=== PATIENT | female | born 1965 | race Caucasian/White ===

== ENCOUNTER 2017-07-26 15:36 | Emergency (ER) | payer MEDICARE, MEDICAID ==
[2017-07-26] MEDS ORDERED: Rivaroxaban 10 MG Tab PO ONE (18:01)
--- NOTE | 2017-07-26 18:01 | EDM.PDOC ---
ED HPI GENERAL MEDICAL PROBLEM - General Chief Complaint: Lower Extremity Injury/Pain Stated Complaint: RT ANKLE SWOLLEN AND HURTS Time Seen by Provider: 07/26/17 17:53 Source of Information: Reports: Patient History Limitations: Reports: No Limitations - History of Present Illness INITIAL COMMENTS - FREE TEXT/NARRATIVE: HISTORY AND PHYSICAL: []52-year-old patient presenting from [facility] [place] with pain to her right leg History of Present Illness: []Patient is mentally challenged Cooperative with exam Has type 2 diabetes Was at [facility] walking for a couple hours today and then stated that her leg hurt, caseworkers then noted that her leg was quite swollen to the lower calf and there was a dark area surrounding her leg just above the ankle Review of Systems: As per history of present illness and below otherwise all systems reviewed and negative. Past medical history: As per history of present illness and as reviewed below otherwise noncontributory. Surgical history: As per history of present illness and as reviewed below otherwise noncontributory. Social history: No reported history of drug or alcohol abuse. Family history: As per history of present illness and as reviewed below otherwise noncontributory. Physical exam: Alert woman answering questions appropriately, has difficulty remembering length of time. Patient was in clinic to see a assistant health educator and her ankle did not look like this on 6 days ago. HEENT: Atraumatic, normocehpalic, pupils reactive, negative for conjunctival pallor or scleral icterus, mucous membranes moist, throat clear, neck supple, nontender, trachea midline. Lungs: Clear to auscultation, breath sounds equal bilaterally, chest non tender. Heart: S1S2, regular, negative for clicks, rubs, or JVD. Abdomen: Soft, nondistended, nontender. Negative for masses or hepatossplenmegaly. Negative for costovertebral tenderness. Pelvis: Stable nontender. Genitourinary: Deferred. Rectal: Deferred Extremities: Edema noted to the calf of her right lower leg no heat is radiating , darkened skin surrounding the right lower leg approximately 4 cm above her ankle, areas proximal 6 cm in length circumferential to the ankle, negative for cords or calf pain. Neurovascular unremarkable. Neuro: Awake, alert, oriented. Cranial nerves II through XII unremarkable. Cerebellum unremarkable. Motor and sensory unremarkable throughout. Exam nonfocal. Diagnostics: Doppler [Ultrasound] Therapeutics: [Unna boot/Gelocast Xarelto] Impression: [#1 DVT right lower leg #2 stasis ulcer right lower leg] Plan: [Discharged to home Leave the Unna boot in place until seen this week by your primary care provider Xarelto one was given in the emergency room and prescription to be filled] Hold the diclofenac until seen by her primary care provider May have Tylenol for discomfort Definitive disposition and diagnosis as appropriate pending reevaluation and review of above. Onset: Gradual Duration: Day(s): Location: Reports: Lower Extremity, Right Quality: Reports: Ache Severity: Moderate Improves with: Reports: None Worsens with: Reports: None Right Leg Pain Score (Numeric/FACES): 5 - Related Data Allergies Allergy/AdvReac Type Severity Reaction Status Date / Time No Known Allergies Allergy Verified 07/26/17 16:06 Home Meds: Home Meds Canagliflozin [Invokana] 300 mg PO DAILY 07/26/17 [History] Diclofenac Sodium 100 gm TP DAILY 07/26/17 [History] Diclofenac Sodium [Voltaren] 75 mg PO BIDMEALS 07/26/17 [History] Exenatide Microspheres [Bydureon] 2 mg SQ DAILY 07/26/17 [History] Furosemide 20 mg PO DAILY 07/26/17 [History] Hydrochlorothiazide 25 mg PO DAILY 07/26/17 [History] Insulin Aspart [NovoLOG] 32 unit SQ BID 07/26/17 [History] Insulin Glarg,Human.Rec.Analog [Lantus] 0 unit SUBCUT DAILY 07/26/17 [History] Lisinopril 10 mg PO DAILY 07/26/17 [History] Olopatadine [Pataday 0.2% Ophth Soln] 1 drop OP DAILY 07/26/17 [History] Rivaroxaban [Xarelto] 15 mg PO BID #42 tablet 07/26/17 [Rx] Past Medical History Other Neuro History: develop mentally delayed? Endocrine/Metabolic History: Reports: Diabetes, Type I Social & Family History - Tobacco Use Smoking Status *Q: Never Smoker Second Hand Smoke Exposure: No - Caffeine Use Caffeine Use: Reports: Coffee, Soda - Alcohol Use Days Per Week of Alcohol Use: 0 Number of Drinks Per Day: 0 Total Drinks Per Week: 0 - Recreational Drug Use Recreational Drug Use: No Drug Use in Last 12 Months: No Review of Systems - Review of Systems Review Of Systems: ROS reveals no pertinent complaints other than HPI. ED EXAM, GENERAL - Physical Exam Exam: See Below (See dictation) Course - Vital Signs Last Recorded V/S: Last Vital Signs Temp 36.2 C 07/26/17 16:23 Pulse 104 H 07/26/17 16:23 Resp 18 07/26/17 16:23 BP 136/67 07/26/17 16:23 Pulse Ox 96 07/26/17 16:23 - Orders/Labs/Meds Orders: Active Orders 24 hr Category Date Time Status Venous Doppler Lwr Ext Rt [US] Stat Exams 07/26/17 16:21 Ordered Meds: Medications Discontinued Medications Generic Name Dose Route Start Last Admin Trade Name Freq PRN Reason Stop Dose Admin Rivaroxaban 10 mg 07/26/17 18:01 Xarelto PO 07/26/17 18:02 ONETIME ONE Departure - Departure Time of Disposition: 18:07 Disposition: Home, Self-Care 01 Condition: Good Clinical Impression: DVT (deep venous thrombosis) Qualifiers: DVT location: lower extremity Affected thrombotic vein of extremity: unspecified vein of extremity Chronicity: acute Laterality: right Qualified Code (s): I82.401 - Acute embolism and thrombosis of unspecified deep veins of right lower extremity Venous stasis dermatitis Qualifiers: Laterality: right Qualified Code(s): I87.2 - Venous insufficiency (chronic) ( peripheral) - Discharge Information Prescriptions: Rivaroxaban [Xarelto] 15 mg PO BID #42 tablet Referrals: Deyanira Portillo DO [Primary Care Provider] - Forms: ED Department Discharge Additional Instructions: The following information is given to patients seen in the emergency department who are being discharged to home. This information is to outline your options for follow-up care. We provide all patients seen in our emergency department with a follow-up referral. The need for follow-up, as well as the timing and circumstances, are variable depending upon the specifics of your emergency department visit. If you don't have a primary care physician on staff, we will provide you with a referral. We always advise you to contact your personal physician following an emergency department visit to inform them of the circumstance of the visit and for follow-up with them and/or the need for any referrals to a consulting specialist. The emergency department will also refer you to a specialist when appropriate. This referral assures that you have the opportunity for followup care with a specialist. All of these measure are taken in an effort to provide you with optimal care, which includes your followup. Under all circumstances we always encourage you to contact your private physician who remains a resource for coordinating your care. When calling for followup care, please make the office aware that this follow-up is from your recent emergency room visit. If for any reason you are refused follow-up, please contact the [facility] emergency department at and asked to speak to the emergency department charge nurse. SHe has been started on Xarelto for a blood clot in your right calf This medication is taken twice daily A prescription has been sent to your pharmacy A dressing has been applied to your lower leg for venous stasis dermatitis Follow up with your primary care provider Dr. Calixto see this week for reevaluation Stop your diclofenac while you're taking this medication You may take Tylenol 3 times a day 2 tablets - My Orders Last 24 Hours: My Active Orders 07/26/17 16:21 Venous Doppler Lwr Ext Rt [US] Stat - Assessment/Plan Last 24 Hours: My Active Orders 07/26/17 16:21 Venous Doppler Lwr Ext Rt [US] Stat
[2017-07-26] MEDS ORDERED: Rivaroxaban 15 MG Tab PO STA (18:18)
[2017-07-26 19:00] VITALS: BP 144/66
--- NOTE | 2017-07-28 14:44 | US ---
EXAM DATE: 07/26/17 PATIENT'S AGE: 52 Patient: JUANA MCCORD Facility: [place], [place] Site . Site : [id number] Study: US Extremity Right -07/26/2017 5:39:32 PM Ordering Physician: Doctor Villela Final Report: INDICATION: Right lower extremity swelling TECHNIQUE: Ultrasound venous duplex lower right extremity. Compression venous exam was performed using marin-scale, color Doppler, and spectral Doppler imaging. COMPARISON: None FINDINGS: Sonographic imaging demonstrates the right common femoral, deep femoral, superficial femoral, posterior tibial and greater saphenous veins to be fully compressible with normal color Doppler blood flow. Deep venous thrombosis involving the right popliteal vein. IMPRESSION: Deep venous thrombosis involving the right popliteal vein. Dictated by Darío Aleman MD @ 07/26/2017 6:12:25 PM Dictated by: Darío Aleman MD @ 07/26/2017 18:12:37 ----- ADDENDUM ----- Confirmation of report procedure 07/26/2017 at 6:[address] Betancur: Dictated by Darío Aleman MD @ Jul 26 2017 6:20PM (Electronic Signature) Report Signed by Proxy. JOSIE
== END 2017-07-26 18:55 | disposition home or self-care (01) ==
LOC: MW.ED 15:36
DX: I83.018 Varicose veins of right lower extremity with ulcer other part of lower leg (principal); I83.212 Varicose veins of right lower extremity with both ulcer of calf and inflammation; E10.9 Type 1 diabetes mellitus without complications; Z79.899 Other long term (current) drug therapy
CPT/HCPCS: 93971; 99283; A9270; 99284

== ENCOUNTER 2017-07-29 13:18 | Emergency (ER) | payer MEDICARE, MEDICAID ==
--- NOTE | 2017-07-29 14:14 | EDM.PDOC ---
ED HPI GENERAL MEDICAL PROBLEM - General Chief Complaint: Lower Extremity Injury/Pain Stated Complaint: BLOOD CLOT IN RT LEG Time Seen by Provider: 07/29/17 13:27 Source of Information: Reports: Patient History Limitations: Reports: No Limitations - History of Present Illness INITIAL COMMENTS - FREE TEXT/NARRATIVE: HISTORY AND PHYSICAL: History of present illness: Patient is a 52-year-old female who presents to the emergency room today for a reevaluation of her stasis ulcer and DVT of the right lower extremity. She was seen in our emergency room on 07/26/2017 diagnosed with a DVT and placed on several toe. The patient was supposed to follow-up with her primary care provider but they canceled her appointment. She was unable to get in to either clinic and decided to be evaluated through our emergency department. She reports that she has not removed the Unna boot/Gelocast dressing since it was applied on Tuesday. panel lay up worker that is with the patient states that the home care nurse reports the RLE to appear improved. Patient states that the pain has improved. Denies any shortness of breath or chest pain. She states she's been up ambulating without any difficulty. Offers no systemic complaints. Review of systems: As per history of present illness and below otherwise all systems reviewed and negative. Past medical history: As per history of present illness and as reviewed below otherwise noncontributory. Surgical history: As per history of present illness and as reviewed below otherwise noncontributory. Social history: No reported history of drug or alcohol abuse. Family history: As per history of present illness and as reviewed below otherwise noncontributory. Physical exam: Gen.: Well-developed and well-nourished 52-year-old female. Alert and appropriate for self (mentally challenged). Appears non-toxic and in no acute distress. HEENT: Atraumatic, normocephalic, pupils reactive, negative for conjunctival pallor or scleral icterus, mucous membranes moist, throat clear, neck supple, nontender, trachea midline. Lungs: Clear to auscultation, breath sounds equal bilaterally, chest nontender. Heart: S1S2, regular rate and rhythm without murmur Abdomen: Soft, nondistended, obese, nontender. Negative for masses or hepatosplenomegaly. Negative for costovertebral tenderness. Pelvis: Stable nontender. Genitourinary: Deferred. Rectal: Deferred. Extremities: Atraumatic, negative for cords or calf pain. Neurovascular unremarkable. Skin: Skin is intact, no open sores. Strong pedal pulses. No soft tissue swelling or edema. Midshin to ankle has a dark noni appearance consistant with venous ulcers. No bruising noted to the extremities or trunk/torso. Neuro: Awake, alert, oriented. Cranial nerves II through XII unremarkable. Cerebellum unremarkable. Motor and sensory unremarkable throughout. Exam nonfocal. VSS. The Gelocast was removed. Skin is intact, no open sores. Strong pedal pulses. No soft tissue swelling or edema. Midshin to ankle has a dark noni appearance consistant with venous ulcers. No bruising noted to the extremities or trunk/torso. The dressing will be reapplied by nursing staff. Instructed patient to follow up with her primary care provider next week for reevaluation. Discussed signs and symptoms that would prompt her to come back to the emergency department. Both patient and social work therapist voice understanding and are agreeable to plan of care. Denies any questions at this time. Dressing was completed by nursing staff and wound care nurse/PT staff. Diagnostics: [] Therapeutics: Gelocast Dressing Impression: Wound Recheck Hx of DVT Plan: 1. May use Tylenol as needed for pain. Please avoid any NSAIDs (Aspirin, Ibuprofen, Aleve) at this time. 2. Continue with your Xarelto. 3. Dressing changes as you have been doing, per home care nurse. 4. Follow up with your primary care doctor next week. 5. If you should develop any fever, increased swelling or pain, shortness of breath or chest pain please return to the emergency department. Otherwise return as needed and as discussed. Definitive disposition and diagnosis as appropriate pending reevaluation and review of above. Duration: Day(s): right leg Pain Score (Numeric/FACES): 4 - Related Data Allergies Allergy/AdvReac Type Severity Reaction Status Date / Time No Known Allergies Allergy Verified 07/29/17 13:25 Home Meds: Home Meds Canagliflozin [Invokana] 300 mg PO DAILY 07/29/17 [History] Diclofenac Sodium 1 gm TOP TID 07/29/17 [History] Exenatide Microspheres [Bydureon] 2 mg SQ WEEKLY 07/29/17 [History] Furosemide [Lasix] 20 mg PO DAILY 07/29/17 [History] Hydrochlorothiazide 25 mg PO DAILY 07/29/17 [History] Insulin Aspart [NovoLOG] 32 unit SUBCUT BID 07/29/17 [History] Insulin Glarg,Human.Rec.Analog [Lantus] 42 units SUBCUT BID 07/29/17 [History] Lisinopril 10 mg PO DAILY 07/29/17 [History] Loratadine 10 mg PO DAILY 07/29/17 [History] Olopatadine [Pataday 0.2% Ophth Soln] 1 drop EYEBOTH BID 07/29/17 [History] Rivaroxaban [Xarelto] PO BID 07/29/17 [History] Past Medical History Other Neuro History: develop mentally delayed? Endocrine/Metabolic History: Reports: Diabetes, Type I Social & Family History - Family History Family Medical History: Noncontributory - Tobacco Use Smoking Status *Q: Never Smoker Second Hand Smoke Exposure: No - Caffeine Use Caffeine Use: Reports: Coffee, Soda - Alcohol Use Days Per Week of Alcohol Use: 0 Number of Drinks Per Day: 0 Total Drinks Per Week: 0 - Recreational Drug Use Recreational Drug Use: No Drug Use in Last 12 Months: No Review of Systems - Review of Systems Review Of Systems: ROS reveals no pertinent complaints other than HPI. ED EXAM, GENERAL - Physical Exam Exam: See Below (See dictation) Course - Vital Signs Last Recorded V/S: Last Vital Signs Temp 96.5 F 07/29/17 13:25 Pulse 101 H 07/29/17 13:25 Resp 18 07/29/17 13:25 BP 126/75 07/29/17 13:25 Pulse Ox 93 L 07/29/17 13:25 Departure - Departure Time of Disposition: 14:43 Disposition: Home, Self-Care 01 Clinical Impression: Encounter for wound re-check, History of DVT (deep vein thrombosis) - Discharge Information Referrals: PCP,None [Primary Care Provider] - Forms: ED Department Discharge Additional Instructions: My general discharge The following information is given to patients seen in the emergency department who are being discharged to home. This information is to outline your options for follow-up care. We provide all patients seen in our emergency department with a follow-up referral. The need for follow-up, as well as the timing and circumstances, are variable depending upon the specifics of your emergency department visit. If you don't have a primary care physician on staff, we will provide you with a referral. We always advise you to contact your personal physician following an emergency department visit to inform them of the circumstance of the visit and for follow-up with them and/or the need for any referrals to a consulting specialist. The emergency department will also refer you to a specialist when appropriate. This referral assures that you have the opportunity for follow-up care with a specialist. All of these measure are taken in an effort to provide you with optimal care, which includes your follow-up. Under all circumstances we always encourage you to contact your private physician who remains a resource for coordinating your care. When calling for follow-up care, please make the office aware that this follow-up is from your recent emergency room visit. If for any reason you are refused follow-up, please contact the [facility] Emergency Department at and asked to speak to the emergency department charge nurse. [facility] [address] [place] [id number] 1. May use Tylenol as needed for pain. Please avoid any NSAIDs (Aspirin, Ibuprofen, Aleve) at this time. 2. Continue with your Xarelto until directed by your primary care provider. 3. Dressing changes as you have been doing, per home care nurse. 4. Follow up with your primary care doctor next week. 5. If you should develop any fever, increased swelling or pain, shortness of breath or chest pain please return to the emergency department. Otherwise return as needed and as discussed.
[2017-07-29 15:04] VITALS: BP 120/76
== END 2017-07-29 15:01 | disposition home or self-care (01) ==
LOC: MW.ED 13:18
DX: Z48.812 Encounter for surgical aftercare following surgery on the circulatory system (principal); Z86.718 Personal history of other venous thrombosis and embolism; E10.9 Type 1 diabetes mellitus without complications; Z79.899 Other long term (current) drug therapy
CPT/HCPCS: 99283

== ENCOUNTER 2019-08-13 11:04 | Emergency (ER) | payer MEDICARE, MEDICAID ==
[2019-08-13 11:51] VITALS: BP 152/67; PULSE 92
--- NOTE | 2019-08-13 12:03 | CR ---
Left wrist: 3 views left wrist were obtained. Joint space narrowing is noted between the distal radius and navicular bone. Navicular bone appears sclerotic and slightly deformed likely relating to previous fracture. Small cyst is noted within the lunate bone, which likely is due to degenerative change from impaction by the ulna. No acute abnormality is otherwise seen. Impression: 1. Degenerative change as noted above. 2. 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 Diagnostic code #3 Study was dictated in [place] [employer]
--- NOTE | 2019-08-13 12:34 | EDM.PDOC ---
ED HPI GENERAL MEDICAL PROBLEM - General Chief Complaint: Upper Extremity Injury/Pain Stated Complaint: FELL AND TWISTED LEFT WRIST Time Seen by Provider: 08/13/19 12:05 Source of Information: Reports: Patient, Other ([facility] resident care supervisor) History Limitations: Reports: Other (Poor historian) - History of Present Illness INITIAL COMMENTS - FREE TEXT/NARRATIVE: HISTORY AND PHYSICAL: History of present illness: Patient is a 54-year-old female who presents to the ED today with her light rail signal technician from [facility] for concern of left wrist injury. The light rail signal technician states that they were at lunch when patient had started to fall but caught herself with her left wrist. [employer] states that she did not completely fall and did not hit her head or lose consciousness. Patient states that since then she has been having left wrist pain. Patient and light rail signal technician deny any other symptoms or concerns. Patient denies fever, chills, chest pain, shortness of breath, or cough. Denies headache, neck stiff ness, change in vision, syncope, or near syncope. Denies nausea, vomiting, abdominal pain, diarrhea, constipation, or dysuria. Has not noted any blood in urine or stool. Patient has been eating and drinking appropriately. Review of systems: As per history of present illness and below otherwise all systems reviewed and negative. Past medical history: As per history of present illness and as reviewed below otherwise noncontributory. Surgical history: As per history of present illness and as reviewed below otherwise noncontributory. Social history: See social history for further information Family history: As per history of present illness and as reviewed below otherwise noncontributory. Physical exam: General: Patient is alert, oriented, and in no acute distress. Patient sitting comfortably on exam table. HEENT: Atraumatic, normocephalic, pupils equal and reactive bilaterally, negative for conjunctival pallor or scleral icterus, mucous membranes moist, TMs normal bilaterally, throat clear, neck supple, nontender, trachea midline. No drooling or trismus noted. No meningeal signs. No hot potato voice noted. Lungs: Clear to auscultation, breath sounds equal bilaterally, chest nontender. Heart: S1S2, regular rate and rhythm without overt murmur Abdomen: Soft, nondistended, nontender. Negative for masses or hepatosplenomegaly. Negative for costovertebral tenderness. Pelvis: Stable nontender. Genitourinary: Deferred. Rectal: Deferred. Skin: Intact, warm, dry. No lesions or rashes noted. Extremities: Atraumatic, negative for cords or calf pain. Neurovascular unremarkable. She has full range of motion of the complete left upper extremity without pain or difficulty. Radial pulses grossly intact with capillary refill less than 2 seconds. Neuro: Awake, alert, oriented. Cranial nerves II through XII unremarkable. Cerebellum unremarkable. Motor and sensory unremarkable throughout. Exam nonfocal. Notes: Dr. Ugarte, orthopedics internal medicine nurse practitioner, consulted on patient and states that she is to follow up this week with him in the clinic. Discussed importance for follow-up with an orthopedic provider. Voices understanding and is agreeable to plan of care. Denies any further questions or concerns at this time. Diagnostics: Wrist XR Therapeutics: None ( has wrist splint at home) Prescription: None Impression: Left wrist injury Plan: 1. Rest, ice, elevate the affected extremity. You can apply ice 15 minutes on, 15 minutes off. Use splint you have at home until orthopedic follow up. 2. Tylenol and/or Ibuprofen as directed for pain management or discomfort. 3. Follow up with the Orthopedic provider as discussed. Call the clinic to set up an appointment time. Return to the ED as needed and as discussed. Definitive disposition and diagnosis as appropriate pending reevaluation and review of above. - Related Data Allergies Allergy/AdvReac Type Severity Reaction Status Date / Time No Known Allergies Allergy Verified 07/29/17 13:25 Home Meds: Home Meds Canagliflozin [Invokana] 300 mg PO DAILY 07/29/17 [History] Diclofenac Sodium 1 gm TOP TID 07/29/17 [History] Exenatide Microspheres [Bydureon] 2 mg SQ WEEKLY 07/29/17 [History] Furosemide [Lasix] 20 mg PO DAILY 07/29/17 [History] Insulin Aspart [NovoLOG] 32 unit SUBCUT BID 07/29/17 [History] Insulin Glarg,Human.Rec.Analog [Lantus] 42 units SUBCUT BID 07/29/17 [History] Lisinopril 10 mg PO DAILY 07/29/17 [History] Loratadine 10 mg PO DAILY 07/29/17 [History] Olopatadine [Pataday 0.2% Ophth Soln] 1 drop EYEBOTH BID 07/29/17 [History] Rivaroxaban [Xarelto] PO BID 07/29/17 [History] hydroCHLOROthiazide [Hydrochlorothiazide] 25 mg PO DAILY 07/29/17 [History] Past Medical History HEENT History: Reports: Impaired Vision Cardiovascular History: Reports: Hypertension Other Neuro History: develop mentally delayed? Endocrine/Metabolic History: Reports: Diabetes, Type II Social & Family History - Family History Family Medical History: Noncontributory - Tobacco Use Smoking Status *Q: Never Smoker - Caffeine Use Caffeine Use: Reports: Coffee, Soda - Recreational Drug Use Recreational Drug Use: No Review of Systems - Review of Systems Review Of Systems: Comprehensive ROS is negative, except as noted in HPI. ED EXAM, GENERAL - Physical Exam Exam: See Below (see dictation) Course - Vital Signs Last Recorded V/S: Last Vital Signs Temp 97.4 F 08/13/19 11:47 Pulse 92 08/13/19 11:47 Resp 18 08/13/19 11:47 BP 152/67 H 08/13/19 11:47 Pulse Ox 95 08/13/19 11:47 Departure - Departure Time of Disposition: 12:30 Disposition: Home, Self-Care 01 Clinical Impression: Left wrist injury Qualifiers: Encounter type: initial encounter Qualified Code(s): S69.92XA - Unspecified injury of left wrist, hand and finger(s), initial encounter - Discharge Information Referrals: Deyanira Portillo DO [Primary Care Provider] - Additional Instructions: The following information is given to patients seen in the emergency department who are being discharged to home. This information is to outline your options for follow-up care. We provide all patients seen in our emergency department with a follow-up referral. The need for follow-up, as well as the timing and circumstances, are variable depending upon the specifics of your emergency department visit. If you don't have a primary care physician on staff, we will provide you with a referral. We always advise you to contact your personal physician following an emergency department visit to inform them of the circumstance of the visit and for follow-up with them and/or the need for any referrals to a consulting specialist. The emergency department will also refer you to a specialist when appropriate. This referral assures that you have the opportunity for follow-up care with a specialist. All of these measure are taken in an effort to provide you with optimal care, which includes your follow-up. Under all circumstances we always encourage you to contact your private physician who remains a resource for coordinating your care. When calling for follow-up care, please make the office aware that this follow-up is from your recent emergency room visit. If for any reason you are refused follow-up, please contact the [facility] Emergency Department at and asked to speak to the emergency department charge nurse. [facility] [address] [place] [id number] [address] [facility] Professional Building [address] [place] [address], [address] [place] [address] 1. Rest, ice, elevate the affected extremity. You can apply ice 15 minutes on, 15 minutes off. Use splint you have at home until orthopedic follow up. 2. Tylenol and/or Ibuprofen as directed for pain management or discomfort. 3. Follow up with the Orthopedic provider as discussed. Call the clinic to set up an appointment time. Return to the ED as needed and as discussed. Sepsis Event Note - Evaluation Sepsis Screening Result: No Definite Risk - Focused Exam Vital Signs: Vital Signs Temp Pulse Resp BP Pulse Ox 08/13/19 11:47 97.4 F 92 18 152/67 H 95 Date Exam was Performed: 08/13/19 Time Exam was Performed: 12:29
== END 2019-08-13 13:04 | disposition home or self-care (01) ==
LOC: MW.ED 11:04
DX: S69.92XA Unspecified injury of left wrist, hand and finger(s), initial encounter (principal); E11.9 Type 2 diabetes mellitus without complications; I10 Essential (primary) hypertension; Z79.4 Long term (current) use of insulin; Z79.899 Other long term (current) drug therapy; W19.XXXA Unspecified fall, initial encounter
CPT/HCPCS: 29125; 73110-26-LT; 73110-LT; 99283; 99283-25

== ENCOUNTER 2020-12-23 18:04 | Emergency (ER) | payer MEDICARE, MEDICAID ==
[2020-12-23 18:51] VITALS: BP 145/76; PULSE 89
--- NOTE | 2020-12-23 19:09 | EDM.PDOC ---
ED HPI GENERAL MEDICAL PROBLEM - General Chief Complaint: Lower Extremity Injury/Pain Stated Complaint: PAIN IN LOWER LEG Time Seen by Provider: 12/23/20 18:07 Source of Information: Reports: Patient History Limitations: Reports: No Limitations - History of Present Illness INITIAL COMMENTS - FREE TEXT/NARRATIVE: HISTORY AND PHYSICAL: History of present illness: Patient is a 55-year-old female who presents emergency room today from [facility] with her auditor at bedside with complaint of right lower extremity swelling, edema that started yesterday. Per the auditor, patient started complaining of her lower extremity yesterday and they noticed the redness this morning. Underground Supervisor states that she has a history of prior DVT in the other lower extremity a few years ago. Patient states that she started having some pain and denies any injury or trauma. Underground Supervisor also denies any injury or trauma. Patient has been able to walk without difficulty. Denies any other symptoms or concerns. Patient denies fever, chills, chest pain, shortness of breath, or cough. Denies headache, neck stiff ness, change in vision, syncope, or near syncope. Denies nausea, vomiting, abdominal pain, diarrhea, constipation, or dysuria. Has not noted any blood in urine or stool. Patient has been eating and drinking appropriately. Review of systems: As per history of present illness and below otherwise all systems reviewed and negative. Past medical history: As per history of present illness and as reviewed below otherwise noncontributory. Surgical history: As per history of present illness and as reviewed below otherwise noncontributory. Social history: See social history for further information Family history: As per history of present illness and as reviewed below otherwise noncontributory. Physical exam: General: Patient is alert, oriented, and in no acute distress. Patient sitting comfortably on exam table. Vitals stable and reviewed by me. HEENT: Atraumatic, normocephalic, pupils equal and reactive bilaterally, negative for conjunctival pallor or scleral icterus, mucous membranes moist, TMs normal bilaterally, throat clear, neck supple, nontender, trachea midline. No drooling or trismus noted. No meningeal signs. No hot potato voice noted. Lungs: Clear to auscultation, breath sounds equal bilaterally, chest nontender. Heart: S1S2, regular rate and rhythm without overt murmur Abdomen: Soft, nondistended, nontender. Negative for masses or hepatosplenomegaly. Negative for costovertebral tenderness. Pelvis: Stable nontender. Genitourinary: Deferred. Rectal: Deferred. Skin: Intact, warm, dry. No lesions or rashes noted. Extremities: The left lower extremity from the mid tib/fib area to the ankle is edematous and erythematous and increased warmth to the touch. Pain to palpation of this area. Patient has full range of motion of the complete left lower extremity without pain or difficulty. Intact sensation to light and deep touch of the complete left lower extremity. All compartments are soft of the left lower extremity. Dorsalis pedis and posterior tibial pulses are intact via Doppler. Otherwise, atraumatic, negative for cords or calf pain. Neurovascular unremarkable. Neuro: Awake, alert, oriented. Cranial nerves II through XII unremarkable. Cerebellum unremarkable. Motor and sensory unremarkable throughout. Exam nonfoc al. Notes: Signs and symptoms that would prompt return to the ED thoroughly discussed with patient and caregiver. Discussed importance for follow-up with a primary care provider. Area of cellulitis was outlined with a marker. Voices understanding and is agreeable to plan of care. Denies any further questions or concerns at this time. Diagnostics: Lower extremity venous ultrasound Therapeutics: None Prescription: Keflex Impression: Cellulitis, left lower extremity Plan: 1. Take medication as prescribed. You can alternate ibuprofen and Tylenol as directed for pain and discomfort. 2. Follow-up with primary care provider as discussed. Return to the ED as needed and as discussed. 3. Continue to monitor for signs of improving versus worsening infection as discussed. Definitive disposition and diagnosis as appropriate pending reevaluation and review of above. left leg Pain Score (Numeric/FACES): 6 - Related Data Allergies Allergy/AdvReac Type Severity Reaction Status Date / Time No Known Allergies Allergy Verified 12/23/20 18:51 Home Meds: Home Meds Canagliflozin [Invokana] 300 mg PO DAILY 07/29/17 [History] Diclofenac Sodium 1 gm TOP TID 07/29/17 [History] Exenatide Microspheres [Bydureon] 2 mg SQ WEEKLY 07/29/17 [History] Furosemide [Lasix] 20 mg PO DAILY 07/29/17 [History] Insulin Aspart [NovoLOG] 32 unit SUBCUT BID 07/29/17 [History] Insulin Glarg,Human.Rec.Analog [Lantus] 42 units SUBCUT BID 07/29/17 [History] Lisinopril 10 mg PO DAILY 07/29/17 [History] Loratadine 10 mg PO DAILY 07/29/17 [History] Olopatadine [Pataday 0.2% Ophth Soln] 1 drop EYEBOTH BID 07/29/17 [History] Rivaroxaban [Xarelto] PO BID 07/29/17 [History] hydroCHLOROthiazide [Hydrochlorothiazide] 25 mg PO DAILY 07/29/17 [History] cephALEXin [Keflex] 500 mg PO Q8H 10 Days #30 cap 12/23/20 [Rx] Past Medical History HEENT History: Reports: Impaired Vision Cardiovascular History: Reports: Hypertension Other Neuro History: develop mentally delayed? Endocrine/Metabolic History: Reports: Diabetes, Type II Social & Family History - Family History Family Medical History: No Pertinent Family History - Caffeine Use Caffeine Use: Reports: Coffee, Soda Review of Systems - Review of Systems Review Of Systems: Comprehensive ROS is negative, except as noted in HPI. ED EXAM, GENERAL - Physical Exam Exam: See Below (See dictation) Course - Vital Signs Last Recorded V/S: Last Vital Signs Temp 97.8 F 12/23/20 18:49 Pulse 89 12/23/20 18:49 Resp 16 12/23/20 18:49 BP 145/76 H 12/23/20 18:49 Pulse Ox 95 12/23/20 18:49 Departure - Departure Time of Disposition: 21:36 Disposition: Home, Self-Care 01 Clinical Impression: Cellulitis Qualifiers: Site of cellulitis: extremity Site of cellulitis of extremity: lower extremity Laterality: left Qualified Code(s): L03.116 - Cellulitis of left lower limb - Discharge Information Prescriptions: cephALEXin [Keflex] 500 mg PO Q8H 10 Days #30 cap Referrals: Deyanira Portillo DO [Primary Care Provider] - Forms: ED Department Discharge Additional Instructions: The following information is given to patients seen in the emergency department who are being discharged to home. This information is to outline your options for follow-up care. We provide all patients seen in our emergency department with a follow-up referral. The need for follow-up, as well as the timing and circumstances, are variable depending upon the specifics of your emergency department visit. If you don't have a primary care physician on staff, we will provide you with a referral. We always advise you to contact your personal physician following an emergency department visit to inform them of the circumstance of the visit and for follow-up with them and/or the need for any referrals to a consulting specialist. The emergency department will also refer you to a specialist when appropriate. This referral assures that you have the opportunity for follow-up care with a specialist. All of these measure are taken in an effort to provide you with optimal care, which includes your follow-up. Under all circumstances we always encourage you to contact your private physician who remains a resource for coordinating your care. When calling for follow-up care, please make the office aware that this follow-up is from your recent emergency room visit. If for any reason you are refused follow-up, please contact the [facility] Emergency Department at and asked to speak to the emergency department charge nurse. [facility] [address] [place] [address] [place] [address] 1. Take medication as prescribed. You can alternate ibuprofen and Tylenol as directed for pain and discomfort. 2. Follow-up with primary care provider as discussed. Return to the ED as needed and as discussed. 3. Continue to monitor for signs of improving versus worsening infection as discussed. Sepsis Event Note (ED) - Evaluation Sepsis Screening Result: No Definite Risk - Focused Exam Vital Signs: Vital Signs Temp Pulse Resp BP Pulse Ox 12/23/20 18:49 97.8 F 89 16 145/76 H 95
--- NOTE | 2020-12-23 21:33 | US ---
INDICATION: Lower extremity edema and erythema with history of previous DVT. TECHNIQUE: A compression venous ultrasound exam was performed of the left lower extremity using marin-scale imaging, color Doppler and spectral Doppler analysis. FINDINGS: Sonographic imaging of the left lower extremity demonstrates normal compressibility and color Doppler venous blood flow within the common femoral vein, deep femoral vein, and the proximal greater saphenous vein. Within the thigh, the femoral vein is patent and compressible. At a lower level, the popliteal and posterior tibial veins also show normal compressibility and color Doppler venous blood flow. Limited imaging of the contralateral groin demonstrates a normal spectral waveform and color Doppler venous blood flow within the right common femoral vein. IMPRESSION: Normal venous ultrasound exam. No evidence of deep vein thrombosis within the left lower extremity. Dictated by Julius Song MD @ 12/23/2020 9:31:[address] Julius Song @ Dec 23 2020 9:31PM
[2020-12-23] MEDS ORDERED: Cephalexin 500 MG Cap PO ONE (21:37)
== END 2020-12-23 22:03 | disposition home or self-care (01) ==
LOC: MW.ED 18:04
DX: L03.116 Cellulitis of left lower limb (principal); E11.9 Type 2 diabetes mellitus without complications; I10 Essential (primary) hypertension; Z79.4 Long term (current) use of insulin; Z79.01 Long term (current) use of anticoagulants; Z79.899 Other long term (current) drug therapy
CPT/HCPCS: 93971; 99283; A9270

== ENCOUNTER 2021-08-24 10:43 | Emergency (ER) | payer MEDICARE, MEDICAID ==
[2021-08-24 11:03] VITALS: BP 138/88; PULSE 88
[2021-08-24] MEDS: Acetaminophen/oxyCODONE 325-10 MG Tab PO ONE (12:02)
== END 2021-08-24 12:10 | disposition home or self-care (01) ==
LOC: MW.ED 10:43
DX: S42.214A Unspecified nondisplaced fracture of surgical neck of right humerus, initial encounter for closed fracture (principal); I10 Essential (primary) hypertension; E11.9 Type 2 diabetes mellitus without complications; Z79.01 Long term (current) use of anticoagulants; Z79.4 Long term (current) use of insulin; Z79.899 Other long term (current) drug therapy; W00.0XXA Fall on same level due to ice and snow, initial encounter
CPT/HCPCS: 73030; 99283; A9270

== ENCOUNTER 2021-09-04 16:21 | Emergency (ER) | payer MEDICARE, MEDICAID ==
[2021-09-04 16:36] VITALS: BP 142/64; PULSE 103
== END 2021-09-04 18:13 | disposition home or self-care (01) ==
LOC: MW.ED 16:21
DX: S42.201D Unspecified fracture of upper end of right humerus, subsequent encounter for fracture with routine healing (principal); I10 Essential (primary) hypertension; E11.9 Type 2 diabetes mellitus without complications; Z79.4 Long term (current) use of insulin; Z79.899 Other long term (current) drug therapy; W01.198D Fall on same level from slipping, tripping and stumbling with subsequent striking against other object, subsequent encounter
CPT/HCPCS: 73020-26-RT; 73020-RT; 99283

== ENCOUNTER 2021-09-23 13:18 | Observation (INO) | payer MEDICARE, MEDICAID ==
[2021-09-23] MEDS ORDERED: Sodium Chloride 0.9% 1,000 ML IV ONE ×3 (13:30→17:20)
[2021-09-23 14:23] LABS: CARBON DIOXIDE,CO2 28.5 mmol/L (21.0-32.0); POTASSIUM,K 4.3 mmol/L (3.5-5.1)
[2021-09-23 15:47] LABS: CORONAVIRUS COVID-19 NAA NEGATIVE (NEGATIVE); INFLUENZA A NAA NEGATIVE (NEGATIVE); INFLUENZA B NAA NEGATIVE (NEGATIVE)
[2021-09-23] MEDS ORDERED: VANCOmycin 1.5 GM/300 ML 1.5 GM in Premix Bag 1 BAG IV ONE (16:30)
[2021-09-23] MEDS ORDERED: cefTRIAXone 1 GM in Sodium Chloride 0.9% 50 ML IV ONE (18:10)
[2021-09-23] MEDS ORDERED: Glucagon,Human Recombinant 1 MG Vial IM PRN (20:30)
[2021-09-23] MEDS ORDERED: 50% Dextrose in Water 50 ML Syringe IVPUSH PRN (20:30)
[2021-09-23] MEDS: Insulin Glargine,Human Rec. Analog 100 Units/ML 3 ML Pen SUBCUT SCH (22:21)
[2021-09-23] MEDS: Acetaminophen/oxyCODONE 325-10 MG Tab PO PRN (23:43)
[2021-09-24] MEDS ORDERED: Lactated Ringers 1,000 ML IV ONE (00:01)
[2021-09-24] MEDS ORDERED: Lactated Ringers 1,000 ML IV SCH (00:15)
[2021-09-24] MEDS: Insulin Aspart 100 Units/ML 3 ML Pen SUBCUT SCH ×3 (07:56→16:50)
[2021-09-24 08:02] LABS: CARBON DIOXIDE,CO2 22.3 mmol/L (21.0-32.0); POTASSIUM,K 4.2 mmol/L (3.5-5.1)
[2021-09-24] MEDS: Acetaminophen/oxyCODONE 325-10 MG Tab PO PRN ×2 (08:48→18:09)
[2021-09-24] MEDS: Gabapentin 300 MG Cap PO SCH ×2 (08:48→20:01)
[2021-09-24] MEDS: Omeprazole 20 MG Cap.CR PO SCH (08:50)
[2021-09-24] MEDS: Insulin Glargine,Human Rec. Analog 100 Units/ML 3 ML Pen SUBCUT SCH ×2 (08:54→20:00)
[2021-09-24] MEDS: Heparin Sodium 5,000 Units/ML Vial SUBCUT SCH ×2 (12:31→20:01)
[2021-09-24] MEDS: Azithromycin 250 MG Tab PO SCH (12:32)
[2021-09-24] MEDS: Albuterol/Ipratropium 3.0-0.5 MG/3 ML Neb Soln NEB SCH ×3 (14:31→23:48)
[2021-09-24] MEDS: cefTRIAXone 1 GM in Sodium Chloride 0.9% 50 ML IV SCH (16:32)
[2021-09-24] MEDS ORDERED: Iopamidol 755 MG/ML 500 ML Multipack Bottle IVPUSH STA (16:32)
[2021-09-25] MEDS: Albuterol/Ipratropium 3.0-0.5 MG/3 ML Neb Soln NEB SCH ×6 (03:42→22:17)
[2021-09-25] MEDS: Heparin Sodium 5,000 Units/ML Vial SUBCUT SCH ×3 (03:42→20:38)
[2021-09-25 06:28] LABS: BLOOD UREA NITROGEN,BUN 19 mg/dL (7.0-18.0); CARBON DIOXIDE,CO2 28.9 mmol/L (21.0-32.0); CHLORIDE,CL 103 mmol/L (98-107); GLUCOSE RANDOM 87 mg/dL (74-106); POTASSIUM,K 3.8 mmol/L (3.5-5.1); SODIUM,NA 139 mmol/L (136-145)
[2021-09-25] MEDS: Omeprazole 20 MG Cap.CR PO SCH (06:50)
[2021-09-25] MEDS: Insulin Aspart 100 Units/ML 3 ML Pen SUBCUT SCH ×3 (06:51→17:08)
[2021-09-25] MEDS: Acetaminophen/oxyCODONE 325-10 MG Tab PO PRN ×3 (09:23→23:46)
[2021-09-25] MEDS: Gabapentin 300 MG Cap PO SCH ×2 (09:23→20:38)
[2021-09-25] MEDS: Azithromycin 250 MG Tab PO SCH (11:52)
[2021-09-25] MEDS: cefTRIAXone 1 GM in Sodium Chloride 0.9% 50 ML IV SCH (16:31)
[2021-09-25] MEDS: Insulin Glargine,Human Rec. Analog 100 Units/ML 3 ML Pen SUBCUT SCH (20:43)
[2021-09-26] MEDS: Albuterol/Ipratropium 3.0-0.5 MG/3 ML Neb Soln NEB SCH ×4 (02:29→13:58)
[2021-09-26] MEDS: Heparin Sodium 5,000 Units/ML Vial SUBCUT SCH ×2 (04:59→11:51)
[2021-09-26] MEDS: Omeprazole 20 MG Cap.CR PO SCH ×2 (06:07→06:47)
[2021-09-26] MEDS: Acetaminophen/oxyCODONE 325-10 MG Tab PO PRN (06:07)
[2021-09-26 06:09] LABS: BLOOD UREA NITROGEN,BUN 15 mg/dL (7.0-18.0); CARBON DIOXIDE,CO2 30.4 mmol/L (21.0-32.0); CHLORIDE,CL 104 mmol/L (98-107); GLUCOSE RANDOM 110 mg/dL (74-106); POTASSIUM,K 4.4 mmol/L (3.5-5.1); SODIUM,NA 140 mmol/L (136-145)
[2021-09-26] MEDS: Gabapentin 300 MG Cap PO SCH (09:04)
[2021-09-26] MEDS: Insulin Aspart 100 Units/ML 3 ML Pen SUBCUT SCH ×2 (09:04→11:56)
[2021-09-26] MEDS: Azithromycin 250 MG Tab PO SCH (11:50)
[2021-09-26] MEDS ORDERED: Meclizine 25 MG Tab PO PRN (12:34)
[2021-09-26 16:05] VITALS: BP 135/70; PULSE 93
== END 2021-09-26 15:50 | disposition home or self-care (01) ==
LOC: MW.ED 13:18 → MW.MS 18:10
PROVIDERS: ADMIT Internal Medicine; ATTEND Internal Medicine
DX: I95.9 Hypotension, unspecified (principal); N39.0 Urinary tract infection, site not specified; N17.9 Acute kidney failure, unspecified; H54.7 Unspecified visual loss; I10 Essential (primary) hypertension; E11.9 Type 2 diabetes mellitus without complications; J98.11 Atelectasis; Z96.611 Presence of right artificial shoulder joint; Z79.4 Long term (current) use of insulin; Z79.899 Other long term (current) drug therapy; Z86.718 Personal history of other venous thrombosis and embolism; Z20.822 Contact with and (suspected) exposure to COVID-19
CPT/HCPCS: 0240U; 36415; 71045; 71275; 80048; 80053; 81001; 82947; 83605; 85025; 87040; 87086; 93005; 93971; 94640; 96365; 96366; 96368; 96372; 96376; 97110; 97162; 99285; A9270; G0378; J0696; J1644; J1815; J3370; J7030; J7120; Q9967; J7620-GY

== ENCOUNTER 2022-08-29 23:10 | Emergency (ER) | payer MEDICARE, MEDICAID ==
[2022-08-29] MEDS ORDERED: Acetaminophen 500 MG Tab PO ONE (23:13)
[2022-08-29] MEDS ORDERED: Ibuprofen 600 MG Tab PO ONE (23:13)
[2022-08-30] MEDS ORDERED: Morphine 4 MG/ML Syringe IVPUSH ONE ×2 (00:19→06:10)
[2022-08-30] MEDS ORDERED: Ondansetron 4 MG/2 ML SDV IVPUSH ONE (00:19)
[2022-08-30 00:25] LABS: CARBON DIOXIDE,CO2 29.7 mmol/L (21.0-32.0); POTASSIUM,K 3.7 mmol/L (3.5-5.1)
[2022-08-30 01:21] VITALS: BP 115/54; PULSE 66
[2022-08-30] MEDS ORDERED: LORazepam 2 MG/ML SDV IVPUSH ONE (06:10)
[2022-08-30] MEDS ORDERED: Morphine 4 MG/ML Syringe ONE (06:11)
[2022-08-30] MEDS ORDERED: LORazepam 2 MG/ML SDV ONE (06:12)
== END 2022-08-30 06:46 ==
LOC: MW.ED 23:10
DX: S72.091A Other fracture of head and neck of right femur, initial encounter for closed fracture (principal); I10 Essential (primary) hypertension; E11.9 Type 2 diabetes mellitus without complications; Z79.4 Long term (current) use of insulin; Z79.899 Other long term (current) drug therapy; Z20.822 Contact with and (suspected) exposure to COVID-19; W18.30XA Fall on same level, unspecified, initial encounter
CPT/HCPCS: 36415; 73502; 80053; 81003; 85025; 85610; 85730; 93005; 96374; 96375; 96376; 99285; A9270; J2060; J2270; J2405; U0002

== ENCOUNTER 2024-06-18 14:28 | Emergency (ER) | payer MEDICARE, MEDICAID ==
[2024-06-18 15:37] VITALS: BP 157/69; PULSE 82
== END 2024-06-18 19:08 | disposition home or self-care (01) ==
LOC: MW.ED 14:28
DX: S20.212A Contusion of left front wall of thorax, initial encounter (principal); R91.1 Solitary pulmonary nodule; I10 Essential (primary) hypertension; E78.00 Pure hypercholesterolemia, unspecified; E11.9 Type 2 diabetes mellitus without complications; Z79.4 Long term (current) use of insulin; Z79.899 Other long term (current) drug therapy; W01.0XXA Fall on same level from slipping, tripping and stumbling without subsequent striking against object, initial encounter
CPT/HCPCS: 71250; 71250-26; 99283